=== PATIENT | female | born 1985 | race African-American/Black ===

== ENCOUNTER 2021-01-07 05:01 | Emergency (ER) | payer OTHER, SELFPAY ==
--- NOTE | ~2021-01-07 | CT_ITS ---
EXAMINATION: CT abdomen pelvis wo con DATE: 01/07/2021 05:32 INDICATION: Right flank pain TECHNIQUE: Computed tomography (CT) of the abdomen and pelvis was performed without intravenous contr ast. The dose-length product (DLP) was 998.90 mGy-cm. Automated exposure control and iterative recons truction technique were employed. COMPARISON: None FINDINGS: The lung bases are clear. The heart size is normal. The liver, spleen, pancreas, gallbladde r, and adrenal glands are normal. The kidneys are unremarkable. No stones are identified in the kidne ys, ureters, or bladder. There is no hydronephrosis or hydroureter. No pathologically enlarged abdomi nal or pelvic lymph nodes are identified. There is no free intraperitoneal gas or evidence of bowel o bstruction. A moderate volume of colonic stool is present. The appendix is normal. IMPRESSION: 1. No CT correlate for the patient's symptoms. Reviewed, dictated and finalized at location A.
[2021-01-07 05:08] VITALS: BP 128/84; PULSE 88; RESP 16; TEMP 36.6; O2SAT 100
--- NOTE | 2021-01-07 05:21 | PC.NURSE ---
Pt to CT scan via stretcher at this time.
[2021-01-07 05:32] LABS: Add Urine Microscopic? YES; Appearance Urine Cloudy (Clear); Bilirubin Urine Negative (Negative); Blood Urine 1+ (Negative); Color Urine Yellow (Yellow); Glucose Urine UA Negative (Negative); Ketones Urine Negative (Negative); Leukocyte Esterase Ur Negative LEU/UL (Negative); Mucus Urine Rare /lpf; Nitrate Urine Negative (Negative); Protein Urine Negative (Negative); RBC Urine 21-50 /hpf (0-2); Specific Grav Ur 1.024 (1.001-1.035); Squamous Epithelial Cell Urine Many /hpf (Few); Urobilinogen Urine Negative mg/dL (<2.0)
[2021-01-07] MEDS: SODIUM CHLORIDE 0.9% IV 1,000 ML 999 ML IV CONT (05:36)
--- NOTE | 2021-01-07 05:40 | ED.GENADULT ---
HPI - General Adult General Chief complaint: Abdominal Pain Stated complaint: Right side flank pain Time Seen by Provider: 01/07/21 05:05 History of Present Illness HPI narrative: Patient 35-year-old female presents to emergency room with chief complaint of right flank pain. Patient reports that this evening she was sleeping and woke up with sudden onset pain in her right flank. Patient reports the pain is not improved by anything reports she was unable to get comfortable patient reports she was pacing around got nauseated took some naproxen and reports feeling a little better at this point. Patient states that she is not had symptoms like this before in the past patient reports that her mother has kidney stones. Patient reports no prior surgical history Related Data Allergies Allergy/AdvReac Type Severity Reaction Status Date / Time sulfamethoxazole Allergy Rash Verified 01/07/21 05:10 [From Bactrim] trimethoprim [From Bactrim] Allergy Rash Verified 01/07/21 05:10 Review of Systems Review of Systems: A 10 system review of systems was completed on the patient and is negative except for what is stated in the HPI. Nursing and ancillary documentation was reviewed. Exam Narrative: GENERAL: Well-appearing, well-nourished, and in no acute distress. HEAD: Normocephalic, atraumatic. EYES: PERRLA and EOMI. ENT: Nares clear, no rhinorrhea or epistaxis. Mucous membranes moist. NECK: Supple. CHEST: Clear to auscultation. No respiratory distress. HEART: Regular rate and rhythm. No murmur heard. Normal peripheral pulses. ABDOMEN: Soft, nontender, nondistended, normal active bowel sounds. EXTREMITIES: Normal range of motion. No edema. SKIN: Warm, dry, no rash. NEURO: No focal deficits. Alert and oriented x3. PSYCH: Normal mood and affect. Course Course Emergency Course: CT scan showed no evidence of acute abnormality Vital Signs Vital signs: Vital Signs Temperature 36.6 C 01/07/21 05:08 Pulse Rate 88 01/07/21 05:08 Respiratory Rate 16 01/07/21 05:08 Blood Pressure 128/84 01/07/21 05:08 Pulse Oximetry 100 01/07/21 05:08 Temperature 36.6 C 01/07/21 05:08 Pulse Rate 88 01/07/21 05:08 Respiratory Rate 16 01/07/21 05:08 Blood Pressure 128/84 01/07/21 05:08 Pulse Oximetry 100 01/07/21 05:08 Medical Decision Making Vital Signs Vital Signs: Vital Signs Temperature 36.6 C 01/07/21 05:08 Pulse Rate 88 01/07/21 05:08 Respiratory Rate 16 01/07/21 05:08 Blood Pressure 128/84 01/07/21 05:08 Pulse Oximetry 100 01/07/21 05:08 Temperature 36.6 C 01/07/21 05:08 Pulse Rate 88 01/07/21 05:08 Respiratory Rate 16 01/07/21 05:08 Blood Pressure 128/84 01/07/21 05:08 Pulse Oximetry 100 01/07/21 05:08 Lab Data Result diagrams: 01/07/21 05:35 01/07/21 05:35 Labs: Lab Results 01/07/21 01/07/21 01/07/21 Range/Units 05:15 05:35 05:35 WBC Pending RBC Pending Hgb Pending Hct Pending MCV Pending MCH Pending MCHC Pending RDW Pending Plt Count Pending MPV Pending Immature Gran % (Auto) Pending Neut % (Auto) Pending Lymph % (Auto) Pending Garza % (Auto) Pending Eos % (Auto) Pending Baso % (Auto) Pending Lymph # (Auto) Pending Garza # (Auto) Pending Eos # (Auto) Pending Baso # (Auto) Pending Abs Immat Gran (auto) Pending Absolute Neuts (auto) Pending Absolute Nucleated RBC Pending Nucleated RBC % Pending Sodium Pending Potassium Pending Chloride Pending Carbon Dioxide Pending Anion Gap Pending BUN Pending Creatinine Pending Estim Creat Clear Calc Pending Estimated GFR Pending Glucose Pending Calcium Pending Total Bilirubin Pending AST Pending ALT Pending Alkaline Phosphatase Pending Total Protein Pending Albumin Pe
[2021-01-07 05:56] LABS: Basophils Percent Auto 0.3 % (0.2-1.2); Eosinophils Absolute Auto 0.1 K/mm3 (0-0.3); Eosinophils Percent Auto 1.4 % (0-4.4); Hematocrit 40.3 % (37.0-47.0); Hemoglobin 12.4 g/dL (12.0-15.0); Immature Granulocyte Absolute 0.02 K/mm3 (0.00-0.031); Immature Granulocyte Percent A 0.3 % (0-0.5); Lymphocytes Absolute Auto 1.72 K/mm3 (0.9-3.2); Mean Corpuscular HGB Conc 30.8 g/dl (32-36); Mean Corpuscular Hemoglobin 22.4 pg (26-34); Mean Corpuscular Volume 72.9 fl (80-100); Mean Platelet Volume 10.8 fl (7.4-10.4); Monocytes Absolute Auto 0.6 K/mm3 (0.1-0.6); Monocytes Percent Auto 9.9 % (2.6-8.5); Neutrophils Absolute Auto 3.9 K/mm3 (1.3-6.7); Neutrophils Percent Auto 61.1 % (45.5-73.1); Platelet Count Result 225 k/mm3 (150-375); Red Blood Count 5.53 M/mm3 (4.2-5.4); Red Cell Distribution Width 15.8 % (11.5-14.5); White Blood Count 6.4 K/mm3 (4.5-10.0)
[2021-01-07 06:54] LABS: Alanine Aminotransferase 26 U/L (4-35); Albumin Level 3.4 g/dL (3.5-5.1); Alkaline Phosphatase 53 U/L (38-126); Anion Gap 5 mmol/L (8-16); Aspartate Amino Transferase 21 U/L (14-36); Bilirubin,Total 0.2 mg/dL (0.2-1.3); Blood Urea Nitrogen 12 mg/dL (7-17); Calcium 7.9 mg/dL (8.4-10.2); Carbon Dioxide 24 mmol/L (22-30); Chloride 108 mmol/L (98-107); Estimated CRCL calculation 101 ml/min; Estimated Glomerular Filt Rate > 60; Glucose 109 mg/dL (65-110); Lipase 169 U/L (23-300); Potassium 3.8 mmol/L (3.4-5.0); Sodium 137 mmol/L (137-145)
[2021-01-07 07:18] VITALS: BP 122/89; PULSE 67; RESP 18; O2SAT 99
== END 2021-01-07 07:19 | disposition home or self-care (01) ==
PROVIDERS: Emergency Provider Emergency Medicine
DX: R10.9 Unspecified abdominal pain (principal)
CPT/HCPCS: 36415; 74176; 80053; 81001; 81025; 83690; 85025; 96360; 99284; J7030

== ENCOUNTER 2022-08-05 11:39 | Emergency (ER) | payer OTHER, SELFPAY ==
--- NOTE | ~2022-08-05 | US_ITS ---
EXAMINATION: US OB <= 14 weeks fetus DATE: 08/05/2022 12:52 INDICATION: Vaginal bleeding during first trimester TECHNIQUE: Real-time pelvic transabdominal and transvaginal ultrasound was performed. COMPARISON: None. FINDINGS: The uterus measures 10.6 x 8.1 x 6.1 cm. There is an intrauterine gestational sac. There is a 12 mm hypoechoic area adjacent to the gestational sac. heart motion is identified measuring 163 beats per minute (bpm) by M-mode Doppler. The crown rump length measures 2.9 cm, which yesika elates with an estimated gestational age of 9 weeks and 5 day(s) (+/-) 6 day(s). The right ovary measures 4.3 x 3.3 x 3.3 cm. The left ovary measures 3.4 x 2.6 x 2.1 cm. There is nor mal vascular flow in the ovaries. There is no free fluid in the pelvis. IMPRESSION: 1. Live intrauterine with an estimated gestational age of 9 weeks and 5 day(s) (+/-) 6 day( s) and an estimated delivery date of 03/05/2023. 2. Small subchorionic hematoma. Reviewed, dictated and finalized at location A. IMPRESSION: 1. Live intrauterine with an estimated gestational age of 9 weeks and 5 day(s) (+/-) 6 day(s) and an estimated delivery date of 03/05/2023. 2. Small subchorionic hematoma.
[2022-08-05 11:46] VITALS: BP 141/100; PULSE 83; RESP 17; TEMP 36.5; O2SAT 100
[2022-08-05 12:09] LABS: Basophils Percent Auto 0.3 % (0.2-1.2); Eosinophils Absolute Auto 0.1 K/mm3 (0-0.3); Hematocrit 38.2 % (37.0-47.0); Hemoglobin 11.8 g/dL (12.0-15.0); Immature Granulocyte Absolute 0.04 K/mm3 (0.00-0.031); Immature Granulocyte Percent A 0.6 % (0-0.5); Lymphocytes Absolute Auto 1.81 K/mm3 (0.9-3.2); Lymphocytes Percent Auto 25.5 % (18.3-44.2); Mean Corpuscular HGB Conc 30.9 g/dl (32-36); Mean Corpuscular Hemoglobin 21.8 pg (26-34); Mean Corpuscular Volume 70.5 fl (80-100); Mean Platelet Volume 10.4 fl (7.4-10.4); Monocytes Absolute Auto 0.6 K/mm3 (0.1-0.6); Monocytes Percent Auto 8.9 % (2.6-8.5); Neutrophils Absolute Auto 4.5 K/mm3 (1.3-6.7); Neutrophils Percent Auto 63.7 % (45.5-73.1); Platelet Count Result 253 k/mm3 (150-375); Red Blood Count 5.42 M/mm3 (4.2-5.4); White Blood Count 7.1 K/mm3 (4.5-10.0)
[2022-08-05 12:23] LABS: Alanine Aminotransferase 24 U/L (6-35); Albumin Level 3.9 g/dL (3.5-5.1); Alkaline Phosphatase 37 U/L (38-126); Anion Gap 6 mmol/L (8-16); Aspartate Amino Transferase 26 U/L (14-36); Bilirubin,Total 0.3 mg/dL (0.2-1.3); Blood Urea Nitrogen 8 mg/dL (7-17); Calcium 8.6 mg/dL (8.4-10.2); Carbon Dioxide 22 mmol/L (22-30); Chloride 107 mmol/L (98-107); Estimated CRCL calculation 136 ml/min; Estimated Glomerular Filt Rate > 60; Glucose 79 mg/dL (65-110); Potassium 3.8 mmol/L (3.4-5.0); Sodium 135 mmol/L (137-145)
[2022-08-05 12:27] LABS: Appearance Urine Clear (Clear); Bilirubin Urine Negative (Negative); Blood Urine Negative (Negative); Color Urine Yellow (Yellow); Glucose Urine UA Negative (Negative); Ketones Urine Negative (Negative); Leukocyte Esterase Ur Negative LEU/UL (Negative); Nitrate Urine Negative (Negative); Protein Urine Negative (Negative); Specific Grav Ur 1.021 (1.001-1.035); Urobilinogen Urine 0.2 mg/dL (<2.0)
[2022-08-05 12:29] LABS: Hypochromasia 1+ (NORMAL); Platelet Estimate Adequate (Adequate)
[2022-08-05 12:30] LABS: Add Urine Microscopic? NO
[2022-08-05 12:30] LABS: Microcytosis 1+ (NORMAL); Poikilocytosis 1+ (NORMAL); Schistocytes None Seen (NORMAL)
--- NOTE | 2022-08-05 12:30 | ED.GENADULT ---
HPI - General Adult General Chief complaint: Vaginal Bleeding Stated complaint: vaginal bleeding Time Seen by Provider: 08/05/22 11:58 History of Present Illness HPI narrative: 36-year-old female that is G2, P0 with a prior miscarriage at 7 weeks of presented to the emergency department for evaluation of vaginal bleeding. Patient is currently 10 weeks . Patient does follow-up with Dr. Hernadez in [place]. Patient did have an ultrasound approximately 3 weeks ago confirming an IUP. Patient states that she woke up this morning and did have some brown and red vaginal bleeding. Patient states she did pass a single clot. Patient suspects that the bleeding lasted approximate 30 minutes after waking. Patient did provide a urine sample in the ED and states that the bleeding has resolved. Patient denies any associate nausea vomiting diarrhea chest pain shortness of breath abdominal pain vaginal discharge or urinary symptoms. Related Data Allergies Allergy/AdvReac Type Severity Reaction Status Date / Time sulfamethoxazole Allergy Rash Verified 08/05/22 11:40 [From Bactrim] trimethoprim [From Bactrim] Allergy Rash Verified 08/05/22 11:40 Review of Systems Review of Systems: All systems reviewed & are unremarkable except as noted in HPI and below Exam Narrative: APPEARANCE: Well appearing, no pain, no distress, well-nourished. HEAD: normocephalic, atraumatic. EYES: PERRLA/EOMI, conjunctivae clear. NOSE: Normal no drainage NECK: Supple. No adenopathy, no masses. RESPIRATORY: Airway patent, respirations nonlabored. Clear to auscultation bilaterally, no rales, rhonchi, wheezing. CARDIOVASCULAR: Regular rate and rhythm without murmurs rubs or gallops. ABDOMINAL: Soft, nontender, nondistended, normal bowel sounds MUSCULOSKELETAL: Moves all extremities. Strength/ROM intact, No edema, No calf tenderness. NEURO: Alert. Cranial nerves II through XII intact. Grossly intact SKIN: Warm, dry. Normal Color Course Course Emergency Course: 36-year-old female presented the ED for vaginal bleeding that lasted approximately 30 minutes. Patient is afebrile with no leukocytosis. Patient's hemoglobin is 11.8. Patient has a normal platelet count. Patient CMP is within normal limits. Patient has a normal UA with no evidence of infection and no blood in her urine. Beta hCG and ultrasound were ordered. Patient suspects that her blood type is B+. Patient's ultrasound showed estimated gestational age of 9 weeks and 5 days with a subchorionic hemorrhage with a heart rate of 163. Patient and family were updated on the results of the work-up and were encouraged of close follow-up with JEW[facility] STRIPPER. All questions and concerns were addressed. Vital Signs Vital signs: Vital Signs Temperature 97.7 F 08/05/22 11:46 Pulse Rate 83 08/05/22 11:46 Respiratory Rate 17 08/05/22 11:46 Blood Pressure 141/100 H 08/05/22 11:46 Pulse Oximetry 100 08/05/22 11:46 Oxygen Delivery Room Air 08/05/22 11:46 Temperature 97.7 F 08/05/22 11:46 Pulse Rate 77 08/05/22 13:59 Respiratory Rate 18 08/05/22 13:59 Blood Pressure 135/91 H 08/05/22 13:59 Pulse Oximetry 99 08/05/22 13:59 Oxygen Delivery Room Air 08/05/22 11:46 Medical Decision Making Differential Diagnosis Differential Diagnosis: Miscarriage, subchorionic hemorrhage, UTI Vital Signs Vital Signs: Vital Signs Temperature 97.7 F 08/05/22 11:46 Pulse Rate 83 08/05/22 11:46 Respiratory Rate 17 08/05/22 11:46 Blood Pressure 141/100 H 08/05/22 11:46 Pulse Oximetry 100 08/05/22 11:46 Oxygen Delivery Room Air 08/05/22 11:46 Temperature 97.7 F 08/05/22 11:46 Pulse Rate 77 08/05/22 13:59 Respiratory Rate 18 08/05/22 13:59 Blood Pressure 135/91 H 08/05/22 13:59 Pulse Oximetry 99 08/05/22 13:59 Oxygen Delivery Room Air 08/05/22 11:46 Lab Data Lab results reviewed: Yes I reviewed the patient's lab resul
[2022-08-05 12:38] LABS: Prothrombin Time 13.3 Seconds (11.1-14.7)
[2022-08-05 13:35] LABS: Beta HCG Quantitative > 15000.00 mIU/ML
[2022-08-05 13:59] VITALS: BP 135/91; PULSE 77; RESP 18; O2SAT 99
== END 2022-08-05 14:00 | disposition home or self-care (01) ==
PROVIDERS: Emergency Provider Emergency Medicine
DX: O46.8X1 Other antepartum hemorrhage, first trimester (principal); Z3A.09 9 weeks gestation of pregnancy
CPT/HCPCS: 36415; 76801; 80053; 81003; 84702; 85025; 85610; 85730; 86900; 86901; 99284

== ENCOUNTER 2022-10-02 04:42 | Observation (INO) | payer OTHER, SELFPAY ==
--- NOTE | ~2022-10-02 | US_ITS ---
EXAMINATION: US OB follow up DATE: 10/02/2022 07:31 INDICATION: Protruding amniotic sac. TECHNIQUE: Real-time ultrasound of the pelvis was performed. COMPARISON: Ultrasound 08/05/2022 FINDINGS: There is a single living fetus in transverse lie. The placenta is posterior and abuts the cervix. Fe vincenzo heart rate is 148 beats per minute (bpm). The amniotic fluid volume is subjectively normal. The c ervix is open. The gestational sac extends through the cervix. The following biometric data were obtained: Biparietal diameter (BPD): 4.0 cm; head circumference (HC): 15.6 cm; abdominal circumference (AC): 14 .9 cm; femur length (FL): 2.9 cm. These measurements are discordant with low HC/AC. Estimated weight is 295 g +/- 44 g, which correlates with the 92nd percentile when 03/01/23 is used as estimated date of delivery. As single measurements, these parameters are each equal to the following estimated gestational ages: BPD: 18 weeks 1 days. HC: 18 weeks 4 days. AC: 20 weeks 1 days. FL: 19 weeks 0 days. estimated gestational age based solely on measurements from this exam is 19 weeks 0 days +/- 1 weeks 2 days. IMPRESSION: 1. Single living fetus in transverse lie. 2. Large for gestational age. Estimated weight is 295 g +/- 44 g, which correlates with the 92n d percentile when 03/01/23 is used as estimated date of delivery. Note that estimated date of deliver y based on the ultrasound from 08/05/2022 would be 03/05/2023. 3. Discordant biometrics with low HC/AC. 4. Open cervix with gestational sac extending through the cervix. Reviewed, dictated and finalized at location A. IMPRESSION: 1. Single living fetus in transverse lie. 2. Large for gestational age. Estimated weight is 295 g +/- 44 g, which c orrelates with the 92nd percentile when 03/01/23 is used as estimated date of d elivery. Note that estimated date of delivery based on the ultrasound from 08/05 would be 03/05/2023. 3. Discordant biometrics with low HC/AC. 4. Open cervix with gestational sac extending through the cervix.
[2022-10-02 04:44] VITALS: BP 139/84; PULSE 93; RESP 16; TEMP 36.9; O2SAT 100
[2022-10-02 04:55] VITALS: BP 148/95; PULSE 95; RESP 14; O2SAT 100
[2022-10-02 05:39] LABS: Basophils Percent Auto 0.2 % (0.2-1.2); Eosinophils Absolute Auto 0.1 K/mm3 (0-0.3); Eosinophils Percent Auto 1.1 % (0-4.4); Hematocrit 39.1 % (37.0-47.0); Hemoglobin 12.2 g/dL (12.0-15.0); Immature Granulocyte Absolute 0.02 K/mm3 (0.00-0.031); Immature Granulocyte Percent A 0.2 % (0-0.5); Lymphocytes Absolute Auto 1.82 K/mm3 (0.9-3.2); Lymphocytes Percent Auto 20.5 % (18.3-44.2); Mean Corpuscular HGB Conc 31.2 g/dl (32-36); Mean Corpuscular Hemoglobin 22.2 pg (26-34); Mean Corpuscular Volume 71.2 fl (80-100); Monocytes Absolute Auto 0.5 K/mm3 (0.1-0.6); Monocytes Percent Auto 5.9 % (2.6-8.5); Neutrophils Absolute Auto 6.4 K/mm3 (1.3-6.7); Neutrophils Percent Auto 72.1 % (45.5-73.1); Platelet Count Result 226 k/mm3 (150-375); Red Blood Count 5.49 M/mm3 (4.2-5.4); Red Cell Distribution Width 15.9 % (11.5-14.5); White Blood Count 8.9 K/mm3 (4.5-10.0)
[2022-10-02 05:49] LABS: Alanine Aminotransferase 24 U/L (6-35); Albumin Level 3.5 g/dL (3.5-5.1); Alkaline Phosphatase 41 U/L (38-126); Anion Gap 5 mmol/L (8-16); Aspartate Amino Transferase 26 U/L (14-36); Bilirubin,Total 0.3 mg/dL (0.2-1.3); Blood Urea Nitrogen 6 mg/dL (7-17); Calcium 8.5 mg/dL (8.4-10.2); Carbon Dioxide 24 mmol/L (22-30); Chloride 106 mmol/L (98-107); Estimated CRCL calculation 156 ml/min; Estimated Glomerular Filt Rate > 60; Glucose 88 mg/dL (65-110); Lipase 89 U/L (23-300); Sodium 135 mmol/L (137-145)
[2022-10-02 05:51] LABS: Appearance Urine Clear (Clear); Bacteria Urine None Seen /hpf; Bilirubin Urine Negative (Negative); Blood Urine 2+ (Negative); Color Urine Yellow (Yellow); Glucose Urine UA Negative (Negative); Ketones Urine Negative (Negative); Leukocyte Esterase Ur 2+ LEU/UL (Negative); Nitrate Urine Negative (Negative); Non Pathogenic Casts 0-2; Protein Urine Trace mg/dL (Negative); RBC Urine 21-50 /hpf (0-2); Specific Grav Ur 1.025 (1.001-1.035); Squamous Epithelial Cell Urine Occasional /hpf (Few); WBC Urine 21-50 /hpf
[2022-10-02 05:54] LABS: Add Urine Microscopic? YES
--- NOTE | 2022-10-02 06:32 | PC.NURSE ---
heart tones and abdominal ultrasound done by Dr. Dumont, [facility] 143.
--- NOTE | 2022-10-02 06:33 | PC.NURSE ---
Pt placed in trendelenburg per Dr. Dumont orders.
--- NOTE | 2022-10-02 06:40 | ED.PREGNANCY ---
HPI - General Chief complaint: Abdominal Pain Stated complaint: preg and cramping Time Seen by Provider: 10/02/22 04:52 History of Present Illness HPI Narrative: This is a 36-year-old female -1-0-1, who presents the emergency department complaining of cramping pelvic pain and spotting beginning this morning. The patient denies any recent change in her health or medications. She denies dysuria or bleeding from elsewhere. She rates her cramps a 7/10 stating the last 5 to 10 minutes. She denies any active pain at this time and has no other complaints. Related Data Allergies Allergy/AdvReac Type Severity Reaction Status Date / Time sulfamethoxazole Allergy Rash Verified 10/02/22 04:47 [From Bactrim] trimethoprim [From Bactrim] Allergy Rash Verified 10/02/22 04:47 Review of Systems Review of Systems: CONSTITUTIONAL: Denies fever, chills, or sweats. CARDIOVASCULAR: Denies chest pain, palpitations, or edema. RESPIRATORY: Denies cough or dyspnea. GASTROINTESTINAL: Abdominal cramping denies abdominal pain, nausea, vomiting, or diarrhea. GENITOURINARY: Vaginal spotting denies dysuria or hematuria. SKIN: Denies rash or itching. MUSCULOSKELETAL: Denies back pain, joint pain, or myalgia. NEUROLOGIC: Denies headache, numbness, dizziness, or weakness. PSYCHIATRIC: Denies anxiety or depression. [facility] Past Medical History Medical History (Updated 10/02/22 @ 07:59 by Brock Dumont MD) Miscarriage Social History Social History (Updated 10/02/22 @ 07:38 by Brock Dumont MD) Smoking status: Never smoker Alcohol intake: never Substance use: never Exam Narrative: GENERAL: Well-developed, well-nourished, and in no acute distress. HEAD: Normocephalic, atraumatic. EYES: PERRLA and EOMI. CHEST: Clear to auscultation. No respiratory distress. No wheezes rales or rhonchi HEART: Regular rate and rhythm. No murmur heard. Normal peripheral pulses. ABDOMEN: Soft, nontender, nondistended, normal active bowel sounds. PELVIC (chaperoned by female RN Latoya): There is no active bleeding noted on speculum exam. There appears to be protrusion of the amniotic sac, without leakage of fluids. The cervix is not visible. EXTREMITIES: Normal range of motion. No edema. SKIN: Warm, dry, no rash. NEURO: No focal deficits. Alert and oriented x3. PSYCH: Normal mood and affect. Course Course Emergency Course: 07:15 - Discussed the patient with OB physician, Dr. Morales who recommends ultrasound and will evaluate the patient in the ED. biofuels production technician informed me, that the cervix is completely open and the fetus appears healthy. I discussed these findings with the patient. I advised the patient that OB physician, Dr. Morales is in route to evaluate her with the plan pending her recommendations. The patient voiced understanding and is comfortable with the plan. She currently denies cramping. 07:43 - Dr. Morales is at bedside. 07:49 - Dr. Morales accepts the patient to OB with plan for discussion with MFM at [facility] regarding possible cerclage versus delivery. Vital Signs Vital signs: Vital Signs Temperature 98.5 F 10/02/22 04:44 Pulse Rate 93 10/02/22 04:44 Respiratory Rate 16 10/02/22 04:44 Blood Pressure 139/84 10/02/22 04:44 Pulse Oximetry 100 10/02/22 04:44 Oxygen Delivery Room Air 10/02/22 04:44 Temperature 98.5 F 10/02/22 04:44 Pulse Rate 95 10/02/22 04:55 Respiratory Rate 14 10/02/22 04:55 Blood Pressure 148/95 H 10/02/22 04:55 Pulse Oximetry 100 10/02/22 04:55 Oxygen Delivery Room Air 10/02/22 04:44 MDM - OB/Uterine Contractions MDM Narrative Medical decision making narrative: Plan: Ultrasound, OB consult, labs, reassess Differential Diagnosis Differential diagnosis: Likely other (Threatened miscarriage, inevitable miscarriage, protruding membranes, incompetent cervix, metabolic abnormality, UTI, other) Lab Data 10/02/22 05:31
[2022-10-02] MEDS: ACETAMINOPHEN 500 MG TABLET 1000 MG PO (06:47)
[2022-10-02 07:32] VITALS: BP 144/93; PULSE 84; RESP 18; O2SAT 100
--- NOTE | 2022-10-02 07:52 | PM.IMHP ---
H&P: HPI History of Present Illness Date/Time: 10/02/22 07:52 Chief Complaint: pain/spotting Narrative: Lea is a 36yo , @ 18.4wks (MARCEL 03/01/23) c/w 9wk US. She presented to the ER overnight after having cramping all night that kept her awake. She reports light pink spotting. She has a h/o FRANCISCO JAVIER diagnosed on the 9wk US. She reports the cramping has spaced out, about 30 minutes. She has been receiving care at [facility] with Dr. Hernadez. She has a h/o first trimester miscarriage. On the ER doctors exam, the amniotic sac was found to be protruding through the cervix. On OB US, baby is consistent with dates, it is transverse with heart tones, placenta is protruding out of the open cervix with protruding sacs. Review of Systems Constitutional: Constitutional: Denies chills and Denies fever(s) Cardiovascular: Cardiovascular: Denies chest pain Respiratory: Respiratory: Denies dyspnea Genitourinary: Genitourinary: Reports abnormal vaginal bleeding, Denies dysuria and Denies vaginal discharge [facility] Past Medical History Medical History (Updated 10/02/22 @ 08:23 by Radha Morales MD) Miscarriage Social History Social History (Updated 10/02/22 @ 07:38 by Brock Dumont MD) Smoking status: Never smoker Alcohol intake: never Substance use: never Meds Home Medications and Allergies Allergies Allergy/AdvReac Type Severity Reaction Status Date / Time sulfamethoxazole Allergy Rash Verified 10/02/22 04:47 [From Bactrim] trimethoprim [From Bactrim] Allergy Rash Verified 10/02/22 04:47 Vital Signs Vital Signs - 24 hr 10/02/22 04:44 10/02/22 04:55 10/02/22 07:32 Temperature 98.5 F Pulse Rate 93 95 84 Respiratory Rate 16 14 18 Blood Pressure 139/84 148/95 H 144/93 H Pulse Oximetry 100 100 100 Oxygen Delivery Room Air Exam Const: General: cooperative, healthy appearing, comfortable and no acute distress Resp: Effort & Inspection: normal respiratory effort Cardio: Rate: regular rate GI: GI Palp: No abdominal tenderness : Other: FHT's: 145bpm Cervix: unable to visualize cervix due to protruding membranes; 3cc of bleeding in the vaginal vault, no pooling Neuro: General: patient oriented x3 Extrem: General: normal to inspection Psych: Appearance: grossly normal Affect: normal affect Attitude: cooperative H&P: Results Labs Labs: Short CBC 10/02/22 Range/Units 05:31 WBC 8.9 (4.5-10.0) K/mm3 Hgb 12.2 (12.0-15.0) g/dL Hct 39.1 (37.0-47.0) % Plt Count 226 (150-375) k/mm3 BMP 10/02/22 05:31 Sodium 135 L Potassium 4.0 Chloride 106 Carbon Dioxide 24 BUN 6 L Creatinine 0.50 L Glucose 88 Calcium 8.5 Liver Function 10/02/22 Range/Units 05:31 Total Bilirubin 0.3 (0.2-1.3) mg/dL AST 26 (14-36) U/L ALT 24 (6-35) U/L Alkaline Phosphatase 41 (38-126) U/L Albumin 3.5 (3.5-5.1) g/dL Urine 10/02/22 Range/Units 05:31 Urine Color Yellow (Yellow) Urine Appearance Clear (Clear) Urine pH 6.0 (5.0-9.0) Ur Specific [place] 1.025 (1.001-1.035) Urine Protein Trace (Negative) mg/dL Urine Glucose (UA) Negative (Negative) mg/dL Assessment and Plan Assessment and plan (1) Inevitable : Code(s): O03.4 - Incomplete spontaneous without complication Status: Acute Plan - Pt examined and no active bleeding or leakage of fluid. Mild cramping, not actively miscarrying. FHT's still present on exam. - M called at 0805 initially; I spoke to Dr. Martínez who had to speak with the [employer] attending who accepted then accepted the transfer at 0828. - Pt agrees to the transfer.
[2022-10-02 08:15] VITALS: BMI 40.6
[2022-10-02 08:23] VITALS: BP 132/69; PULSE 87
--- NOTE | 2022-10-02 09:40 | PC.NURSE ---
[facility]'s transport team here. Brock GOMEZ received report. Assumed care of this pt at this time.
[2022-10-02 09:42] VITALS: BP 139/88; PULSE 90
[2022-10-02 09:43] VITALS: PULSE 84; O2SAT 100
== END 2022-10-02 10:00 | disposition short-term general hospital (02) ==
LOC: ANHED 07:58 → ANHLDR 08:09
PROVIDERS: Admitting Provider Obstetrics & Gynecology; Emergency Provider Preventive Medicine Aerospace Medicine; Visit Provider Obstetrics & Gynecology
DX: O34.32 Maternal care for cervical incompetence, second trimester (principal); Z3A.18 18 weeks gestation of pregnancy
CPT/HCPCS: 36415; 76816; 80053; 81001; 81025; 83690; 85025; 87077; 87086; 87186; 99285; A9270; G0378